=== PATIENT | female | born 1960 | race Caucasian/White ===

== ENCOUNTER 2025-08-17 13:20 | Outpatient (AMB) | payer OTHER, SELFPAY ==
--- OUTSIDE RECORDS SUMMARY | 2024-06-30 05:30 | XMS_ITS ---
Author Organization [facility] Address [address] [place] [address] Care Team Providers Care Filenet Architect Name Role Phone SUDHIR Samson Primary Care Provider [phone] REASON FOR VISIT 6 [facility] Social History Sex Assigned At : Social History Observation Description Sex Assigned At Female Encounters Encounter Location Date Provider Diagnosis [address] [address] 06/30/2024 SUDHIR Samson Plan Of Treatment No Information Progress Notes * Cristin DURAN IDOB:1959 (64 yo F)Acc No.[id number]:06/30/2024 Patient: Cristin Brambila I Provider: Donald Samson DDS :1960 A ge:63 Y S ex:Female Date:06/30/2024 Address:[address] [place] [address] [address] [facility] Subjective: * Chief Complaints: * 6 mrc Objective: Past Vitals:* 12/30/2023 Sterilx2: hd/fb, IDX2: hd/fb , Pulse:60/min, BP:154/71mm Hg, Pain scale:- * 06/24/2023 Sterilx2: gd/fb, IDX2: gd/fb , Pulse:61/min, BP:101/62mm Hg, Pain scale:- * 12/24/2022 Sterilx2:lt/fb, IDX2:lt/fb, Temp:98.4F, Pulse:57/min, BP:126/79mm Hg, Pain scale:01-10 * Electronic signature of CHINO Samson DDS, [id number] on 08/17/2025 at 02:49 PM EDT Sign off status: Pending Visit Status: Saul Kendall (Patient Rescheduled) * Provider: Donald Samson DDS Date: 0 06/30/2024 Generated for Nancy olmedo/Namrata/eTransmitting on: 1 02:49 PM EDT
--- NOTE | 2025-08-17 13:27 | A.OFFPC_ITS ---
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 Intake Note: New patient visit Allergies No Known Allergies Allergy (Verified 08/17/25 13:28) Tobacco use date assessed: 08/17/25 Fall risk assessment: 1 Fall in past year Last assessed Fall Risk: 08/17/25 Dental Screening Dental Screen Date: 08/17/25 Did you have a dental visit in the last 12 months?: Yes Did you have a dental problem in the last 6 months where you did not have access to dental care?: No Was dental information given to patient?: Patient has dentist HPI IMPORT/EXPORT FREIGHT FORWARDER est care/pain meds HPI Details Patient is a 64-year-old female who presents today to [facility]. She is transferring from [place]. No medical records available. She has a hx of pancreatic insufficiency, s/p Whipple per patient without any documentation of this, GI: She states in 2021 she was told to have a whipple due to some issue with pancreatic duct. States NO cancer. Again, no records despite requesting this, she also did not bring them with her. MSK: Fractured her right tibia about 3 months ago. She did need surgery and bracing. She is starting PT in a couple weeks. She sees Dr. Capone. -She has a hx of lumbar DDD. She states she has a hx lumbar spine surgery. She did not feel like this was effective for her back pain. She states that since the surgery she developed severe peripheral neuropathy and bilateral drop foot. -After surgery she had a left ankle inju ry and ?recommended left foot amputa tion. -She states because the pain is so bad s he then went and got a spinal stimulator around 2022. She states it is somewhat helpful. She has been on fci tramadol and this has been helpful for her. In the past gabapentin was not effective. Neuro: Patient has noticed that she is very forgetful for the last couple years. She has a hard time word finding. She is tangential in the office. Her significant other who is here today with her agrees that these changes have been noticeable over the last couple years. She had an MRI in [place] and was told that she has some atrophy of the brain but did not have any workup of this. She was supposed to see Neurology but the wait list was over a year. She did have a sleep study which was negative for sleep apnea. She wants me to test her for thickened blood not being able to get to the brain. Denies any headaches or dizziness. No neck pain. Psych: She was told that she has a history of anxiety and depression but is not really sure if this is accurate. She does struggle with insomnia and sleeps about 2-4 hours at night. Remembers trying 3 different drugs while in the [facility] but does not remember their names. Significant other states that one was called trazodone. 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 1. Little interest or pleasure in doing things: several days 2. Feeling down, depressed, or hopeless: not at all 3. Trouble falling or staying asleep, or sleeping too much: nearly every day 4. Feeling tired or having little energy: nearly every day 5. Poor appetite or overeating: not at all 6. Feeling bad about yourself - or that you are a failure or have let yourself or your family down: not at all 7. Trouble concentrating on things, such as reading the newspaper or watching television: not at all 8. Moving or speaking so slowly that other people could have noticed. Or the opposite - being so fidgety or restless that you have been moving around a lot more than usual: nearly every day 9. Thoughts that you would be better off or of hurting yourself in some way: not at all Total score: 10 Depression Screening Interpretation: Positive Depression Screening Follow-up: Existing condition and Follow-up Visit Requested Depression Screening Done: Yes 63117 - PHQ-9 Billing: Yes Source: Developed by Drs. Davin Clark, Lima Owens, Willy Sanchez and colleagues, with an educational bari from [employer]. Thrive Questionnaire I am a: Patient What is your living situation today?: I have a steady place to live Within the past 12 months, did the food you bought not last and you didn't have the money to get more?: Sometimes True Within the past 12 months, did you worry whether your food would run out before you got money to buy more?: Never true Do you have trouble paying for medicines?: I choose not to answer this question Do you have trouble getting transportation to medical appointments?: No Do you have trouble paying your heating and electricity bill?: No Do you have trouble taking care of your child, family member or friend?: No Do you have trouble with day-to-day activities such as bathing, preparing meals, shopping, managing finances, etc.?: Yes Are you currently unemployed and looking for a job?: No Are you interested in more education?: No Please select the resources that you would like help with: Daily support Currently or been in a relationship where the following occur: I choose not to answer THRIVE Score: 1 AUDIT C Alcohol Use Questionnaire (AUDIT-C) 1. How often do you have a drink containing alcohol?: Never Total Score: 0 Score Reviewed/Action Taken: Yes DALJIT-7 AMB Questionnaire DALJIT-7 Feeling nervous, anxious, or on edge: 1 = Several days Not being able to stop or control worryin = Not at all Worrying too much about different things: 0 = Not at all Trouble relaxin = Several days Being so restless that it is hard to sit still: 0 = Not at all Becoming easily annoyed or irritable: 0 = Not at all Feeling afraid as if something awful might happen: 0 = Not at all Total DALJIT-7 score (0-4 normal; 5-9 mild; 10-14 moderate; 15-21 severe): 2 Source: Developed by Drs. Davin Clark, Willy Koenigoenke and colleagues, with an educational bari from [employer]. DALJIT-7 Assessment Billing DALJIT-7 Assessment Tool: DALJIT-7 Assessment 21292 Physical exam (Primary Care) Depression Screening Interpretation: Positive Depression Screening Follow-up: Existing condition and Follow-up Visit Requested Currently or been in a relationship where the following occur: I choose not to answer Const Orientation/consciousness: patient oriented x3 HENMT Ears: hearing grossly normal bilaterally Neck Thyroid: Thyroid normal Lymphatic: no lymphadenopathy noted Resp Auscultation: clear to auscultation bilaterally Cardio Rate: regular rate Rhythm: regular rhythm Heart sounds: S1 normal heart sound present and S2 normal heart sound present GI Inspection: Yes normal to inspection Palpation (GI): Soft to palpation and Other GI palpation findings present (nontender, no cva tenderness) Auscultation: normoactive bowel sounds Rectal Exam - Female: deferred Skin General skin exam: no rashes or lesions noted Neuro Other: Ambulates with a cane and leg braces. Absent sensation to monofilament. DP pulses 2+ bilaterally. Good capillary refill. Drop foot noted bilaterally. She has a bit tangential during today's visit. General: patient oriented x3 and CN's II-XI intact bilaterally Coding Level of Care Code New Pt Level 5 (18576) Complex EM visit Add On G2211 Diagnoses Forgetfulness R68.89 Insomnia G47.00 Chronic low back pain M54.50; G89.29 Peripheral neuropathy G62.9 Pancreatic insufficiency K86.89 Major depression, recurrent, chronic F33.9 Additional Codes PHQ-9 - 35662 - PHQ-9 Billing: Yes ([id number]) DALJIT-7 Assessment Billing - DALJIT-7 Assessment Tool: DALJIT-7 Assessment 44049 ([id number]) Assessment & Plan Assessment & Plan (1) Forgetfulness: Code(s): R68.89 - Other general symptoms and signs Category: Medical Plan: I spent approximately 90 minutes in bgvu-ac-xlaf time today with this patient trying to get her medical history, discussing a list of her concerns, coming up with a plan for her and reviewing this plan numerous times. MRI ordered Labs ordered Referral to Neurology (2) Insomnia: Code(s): G47.00 - Insomnia, unspecified Category: Medical Plan: We will try hydroxyzine. Discussed risks and benefits and adverse effects of this medication. Reports having a sleep study in the past. Again, requested records (3) Chronic low back pain: Code(s): M54.50 - Low back pain, unspecified; G89.29 - Other chronic pain Category: Medical Plan: We will restart the tramadol. She has recently been prescribed this by Orthopedic surgery for her right tibia fracture Discussed controlled substance contract. She does have braces for her drop foot. Handicap placard documentation also done at the time of today's visit. Offered referral to pain management and discuss possibility of imaging but wants to wait on this until her leg is healed. (4) Peripheral neuropathy: Code(s): G62.9 - Polyneuropathy, unspecified Category: Medical Plan: She is wearing braces. Checks her feet regularly. Stable. As above. (5) Pancreatic insufficiency: Code(s): K86.89 - Other specified diseases of pancreas Category: Medical Plan: creon ordered referral to gi (6) Major depression, recurrent, chronic: Code(s): F33.9 - Major depressive disorder, recurrent, unspecified Category: Medical Plan: discussed possible follow up with wants to wait Plan Mammogram ordered Referral to GI Referral to neurology Labs Short term follow up Orders: Orders Comprehensive Sonoita. Panel Fast Today G47.00 - Insomnia, unspecified, G62.9 - Polyneuropathy, unspecified, G89.29 - Other chronic pain, M54.50 - Low back pain, unspecified, R68.89 - Other general symptoms and signs Complete Blood Count Auto Diff Today G47.00 - Insomnia, unspecified, G62.9 - Polyneuropathy, unspecified, G89.29 - Other chronic pain, M54.50 - Low back pain, unspecified, R68.89 - Other general symptoms and signs TSH reflex Free T4 Today G47.00 - Insomnia, unspecified, G62.9 - Polyneuropathy, unspecified, G89.29 - Other chronic pain, M54.50 - Low back pain, unspecified, R68.89 - Other general symptoms and signs UA CC w/rflx Micro + Cult Today G47.00 - Insomnia, unspecified, G62.9 - Polyneuropathy, unspecified, G89.29 - Other chronic pain, M54.50 - Low back pain, unspecified, R30.0 - Dysuria, R68.89 - Other general symptoms and signs Vitamin B12 and Folate Today G47.00 - Insomnia, unspecified, G62.9 - Polyneuropathy, unspecified, G89.29 - Other chronic pain, M54.50 - Low back pain, unspecified, R68.89 - Other general symptoms and signs MR head/brain wo con Today G47.00 - Insomnia, unspecified, G62.9 - Polyneuropathy, unspecified, G89.29 - Other chronic pain, M54.50 - Low back pain, unspecified, R68.89 - Other general symptoms and signs MM screening mammo BI Today Z12.31 - Encounter for screening mammogram for malignant neoplasm of breast Microalbumin, Random (w Creat) Today G47.00 - Insomnia, unspecified, G62.9 - Polyneuropathy, unspecified, G89.29 - Other chronic pain, M54.50 - Low back pain, unspecified, R68.89 - Other general symptoms and signs Lyme IgG/IgM w/reflex to WB Today G47.00 - Insomnia, unspecified, G62.9 - Polyneuropathy, unspecified, G89.29 - Other chronic pain, M54.50 - Low back pain, unspecified, R68.89 - Other general symptoms and signs Lipid Panel Today G47.00 - Insomnia, unspecified, G62.9 - Polyneuropathy, unspecified, G89.29 - Other chronic pain, M54.50 - Low back pain, unspecified, R68.89 - Other general symptoms and signs Magnesium Today G47.00 - Insomnia, unspecified, G62.9 - Polyneuropathy, unspecified, G89.29 - Other chronic pain, M54.50 - Low back pain, unspecified, R68.89 - Other general symptoms and signs Erythrocyte Sedimentation Rate Today G47.00 - Insomnia, unspecified, G62.9 - Polyneuropathy, unspecified, G89.29 - Other chronic pain, M54.50 - Low back pain, unspecified, R68.89 - Other general symptoms and signs IRON PROFILE Today G47.00 - Insomnia, unspecified, G62.9 - Polyneuropathy, unspecified, G89.29 - Other chronic pain, M54.50 - Low back pain, unspecified, R68.89 - Other general symptoms and signs Ferritin Today G47.00 - Insomnia, unspecified, G62.9 - Polyneuropathy, unspecified, G89.29 - Other chronic pain, M54.50 - Low back pain, unspecified, R68.89 - Other general symptoms and signs Syphilis Screen Today G47.00 - Insomnia, unspecified, G62.9 - Polyneuropathy, unspecified, G89.29 - Other chronic pain, M54.50 - Low back pain, unspecified, R68.89 - Other general symptoms and signs, Z20.2 - Contact with and (suspected) exposure to infections with a predominantly sexual mode of transmission Referrals Neurology Referral R68.89 - Other general symptoms and signs Gastroenterology Referral K86.89 - Other specified diseases of pancreas Medications: New tramadol 50 mg PO BID PRN 60 tabs 5RF pain 30 days tramadol 50 mg PO BID 30 days PRN 60 tabs 5RF pain hydroxyzine HCl 25 mg PO BEDTIME 90 tabs 0RF qqqfuo-relbioec-vfddhhd 36,000-114,000- 180,000 unit (Creon) administer with meals 1 cap PO DAILY 90 caps 3RF
[2025-08-17 13:34] VITALS: BP 106/64; PULSE 65; RESP 14; TEMP 36.9; O2SAT 97; BMI 24.5
--- OUTSIDE RECORDS SUMMARY | 2025-08-17 14:50 | XMS_ITS | Patient Health Record ---
Author Organization [facility] Address [address] [place] [place] [address] Care Team Providers Care Oracle Database Analyst Name Role Phone IssacSUDHIR price Primary Care Provider Allergies No Known Allergies Reason For Referral No Information Medications Medication SIG (Take, Route, Frequency, Duration) Notes Start Date End Date Status Nortriptyline HCl 25 MG Capsule 1 capsule Orally Once a day Not-Taking/PRN Lexapro 10 MG Tablet 1 tablet Orally Onc e a day Not-Taking/PRN Multi Vitamin Active Ashwagandha 125 MG Capsule as directed Orally Active B Complex Active Vitamin D 25 MCG (1000 UT) Tablet 1 tablet Orally Once a day Active oxyCODONE-Acetaminophen 5-325 MG Tablet 1 tablet as needed Orally every 6 hrs Active SF 5000 Plus 1.1 % Cream as directed Den loyd; Duration: 180 days 12/24/2022 Active Social History Tobacco Use: Social History Observation Description Date Details (start date - stop date) Never Smoker NA - NA Sex Assigned At : Social History Observation Description Sex Assigned At Female Social History Drugs/Alcohol: Social Info Question Answer Notes Alcohol Screen (Audit-C) Did you have a drink containing alcohol in the past year? Yes How often did you have a drink containing alcohol in the past year? 2 to 4 times a month (2 points) Points 2 Interpretation Negative Drugs Have you used drugs other than those for medical reasons in the past 12 months? No Drug and Alcohol Total Score: 2 Caffeine Intake: 3-4 cups per day Dental Social Info Question Answer Notes Dental Visit When was the last ti me you have seen a dentist: In the past year Tobacco Use: Social Info Question Answer Notes Tobacco Use/Smoking Are you a smoker ? nonsmoker Additional Details Category Social Info Options Details Learning Needs any vision impairments yes , reading any hearing impairments yes, yury f in left ear can the pt read yes education grade level high schoo l language Hungarian anything else impacting learning no no other learning needs WNL Drugs/Alcohol: Do you smoke marijuana? De nies Do you drink alcohol Admits Vital Signs Heart Rate 71 /min 08/22/2024 Blood pressure diastolic 81 mm Hg 08/22/2024 Blood pressure systolic 121 mm Hg 08/22/2024 Procedures Procedure Date Ordered Date Performed Result Body Sit e PREVIDENT PLUS 08/22/2024 08/22/2024 Done Encounters Encounter Location Date Provider Diagnosis [address] [address] 08/22/2024 SUDHIR Samson Dental examination Z01.20 Assessments Encounter Date Diagnosis (ICD Code) Assessment Notes Treatment Notes Treatment Clinical Notes Section Notes 08/22/2024 Dental examination (ICD-10 - Z01.20) 08/22/2024 Other Learning About Dental Care material was printed Plan Of Treatment No Information Insurance Providers Payer Name Payer Address Payer Phone Subscriber Number Group Number Insured Name Patient Relationship to Insured Coverage Start Date Coverage End Date [employer] [address] [place] [phone] [id number] LancearturAlesha noyolane Self - patient is the insured 3 [facility] Medicare Claims [facility] [address] [facility]ENTERFifth Generation SystemsFormerly [facility] [place] [phone] [id number] Lancetiffanie Cristin Self - patient is the insured 4 Medical (General) History Medical History History ICD Code chronic pain and foot drop from back harpal nir Surgical History Surgery Date(Month/Year) l3-S1 spine fusion 09/2023 right ankle broken 08/2021 removed plate in ankle 11/2021 screw inserted in left foot 01/2022 ER 09/1993 hernia repair 1997 back surgery, disc repair 05/1998 back surgery, disc repair 06/2012 whipple procedure 03/2023 spinal fusion Hospitalization History Reason Date(Month/Year) see above sleep study 08/2024
== END 2025-08-17 14:40 | disposition home or self-care (01) ==
LOC: HO.HMCFM 13:21
PROVIDERS: PCP Physician Assistant; Visit Provider Physician Assistant
DX: G47.00 Insomnia, unspecified (principal); R68.89 Other general symptoms and signs; M54.50 Low back pain, unspecified; G89.29 Other chronic pain; G62.9 Polyneuropathy, unspecified; K86.89 Other specified diseases of pancreas; F33.9 Major depressive disorder, recurrent, unspecified

== ENCOUNTER → 2025-08-17 13:20 | Outpatient (BNVA) | payer OTHER, SELFPAY | PROVIDERS: PCP Physician Assistant; Visit Provider Physician Assistant | DX: M51.360 Other intervertebral disc degeneration, lumbar region with discogenic back pain only (principal); F41.9 Anxiety disorder, unspecified; G47.00 Insomnia, unspecified; G89.29 Other chronic pain; G62.9 Polyneuropathy, unspecified; F33.9 Major depressive disorder, recurrent, unspecified | CPT/HCPCS: 96127 ==

== ENCOUNTER 2025-08-18 08:41 | Outpatient (REF) | payer OTHER, SELFPAY ==
[2025-08-18 11:28] LABS: Appearance Urine Clear; Glucose Urine UA Negative (Negative); PH 6.0 (5.0-9.0); Specific Gravity - Urine 1.020 (1.005-1.025); UMIC TRIGGER UACC YES
[2025-08-18 11:35] LABS: MANUAL DIFF FLAG NO
[2025-08-18 11:38] LABS: UACC Culture Trigger YES
[2025-08-18 11:47] LABS: Hematocrit 35.4 % (37.0-47.0); Hemoglobin 11.8 g/dl (12.0-16.0); Imm Gran Abs Auto 0.02 X10*3/uL (0.00-0.03); Imm Gran Pct Auto 0.3 % (0.0-0.4); Lymphocytes Absolute Auto 1.5 X10*3/uL (1.2-4.9); Mean Corpuscular HGB Conc 33.3 g/dl (31.0-35.0); Mean Corpuscular Hemoglobin 29.4 pg (27.0-33.0); Mean Corpuscular Volume 88.3 fL (80.0-98.0); NRBC Abs Auto 0.000 X10*3/uL (0.0-0.012); NRBC Pct Auto 0.0 /100WBC (0.0-0.2); Platelet Count 274 X10*3/uL (160-400); Red Blood Count 4.01 X10*6/uL (4.20-5.50); White Blood Count 6.2 X10*3/uL (4.8-10.8)
[2025-08-18 12:13] LABS: Alanine Aminotransferase 23 U/L (0-31); Albumin Level 4.1 g/dL (3.5-5.0); Alkaline Phosphatase 201 U/L (39-117); Anion Gap 12 (12-20); Aspartate Amino Transferase 27 U/L (5-31); Blood Urea Nitrogen 16 mg/dL (9-16); Calcium 9.2 mg/dL (8.4-10.2); Carbon Dioxide 31 mmol/L (22-29); Chloride 101 mmol/L (96-108); Cholesterol 165 mg/dL (<200); Estimated Glomerular Filt Rate > 60; HDL Cholesterol 65 mg/dL (>40); Iron 58 mcg/dL (30-160); Magnesium 2.3 mg/dL (1.6-2.6); Percent Iron Saturation 21 % (15-50); Potassium 3.9 mmol/L (3.3-5.1); Sodium 140 mmol/L (135-145); Total Iron Binding Capacity 273 mcg/dL (228-428); Total Protein 6.6 g/dL (6.5-8.0); Triglycerides 69 mg/dL (<150); Unsaturated Iron Binding 215 ug/dL
[2025-08-18 12:23] LABS: Microalbum/Creatinine Ratio Ur 7.3 ug/mg cr (<30)
[2025-08-18 12:37] LABS: Ferritin 45 ng/mL (10-250)
[2025-08-18 12:48] LABS: Syphilis Screen Nonreactive (Nonreactive)
[2025-08-18 12:59] LABS: Folate 13.6 ng/mL (> or = 4.0); Vitamin B12 1033 pg/mL (200-900)
[2025-08-22 13:08] LABS: Lyme Abs Screen <0.90 index
== END 2025-08-18 08:42 | disposition home or self-care (01) ==
LOC: HO.WFDLDS 08:41
PROVIDERS: PCP Physician Assistant; Visit Provider Physician Assistant
DX: Z01.84 Encounter for antibody response examination (principal); Z13.6 Encounter for screening for cardiovascular disorders; M54.50 Low back pain, unspecified; R68.89 Other general symptoms and signs; G47.00 Insomnia, unspecified; G89.29 Other chronic pain; G62.9 Polyneuropathy, unspecified; I10 Essential (primary) hypertension; Z20.2 Contact with and (suspected) exposure to infections with a predominantly sexual mode of transmission
CPT/HCPCS: 36415; 80053; 80061; 81001; 82043; 82570; 82607; 82728; 82746; 83540; 83735; 84443; 85025; 85652; 86617; 86618; 86780; 87086; 90471; 90656

== ENCOUNTER 2025-08-18 08:41 | Outpatient (AMB) | payer OTHER, SELFPAY ==
--- OUTSIDE RECORDS SUMMARY | 2024-06-30 05:30 | XMS_ITS ---
Author Organization [facility] Address [address] [place] [address] Care Team Providers Care Environmental Sciences Professor Name Role Phone SUDHIR Samson Primary Care Provider REASON FOR VISIT 6 [facility] Social History Sex Assigned At : Social History Observation Description Sex Assigned At Female Encounters Encounter Location Date Provider Diagnosis [address] [address] 06/30/2024 SUDHIR Samson Plan Of Treatment No Information Progress Notes * Cristin DURAN IDOB:1959 (64 yo F)Acc No.[id number]:06/30/2024 Patient: Cristin Brambila I Provider: Donald Samson DDS :1960 A ge:63 Y S ex:Female Date:06/30/2024 Address:[address] [place] [address] [address] [facility] Subjective: * Chief Complaints: * 6 mrc Objective: Past Vitals:* 12/30/2023 Sterilx2: hd/fb, IDX2: hd/fb , Pulse:60/min, BP:154/71mm Hg, Pain scale:- * 06/24/2023 Sterilx2: gd/fb, IDX2: gd/fb , Pulse:61/min, BP:101/62mm Hg, Pain scale:- * 12/24/2022 Sterilx2:lt/fb, IDX2:lt/fb, Temp:98.4F, Pulse:57/min, BP:126/79mm Hg, Pain scale:01-10 * Electronic signature of CHINO Samson DDS, [id number] on 08/18/2025 at 09:03 AM EDT Sign off status: Pending Visit Status: Saul Kendall (Patient Rescheduled) * Provider: Donald Samson DDS Date: 0 06/30/2024 Generated for Nancy olmedo/Namrata/eTransmitting on: 1 09:03 AM EDT
--- OUTSIDE RECORDS SUMMARY | 2025-08-18 09:04 | XMS_ITS | Patient Health Record ---
Author Organization [facility] Address [address] [place] [address] Care Team Providers Care General Ledger Bookkeeper Name Role Phone IssacSUDHIR price Primary Care Provider [phone] Allergies No Known Allergies Reason For Referral [...] education grade level high schoo l language Italian anything else impacting learning no no other [...] Done Encounters Encounter Location Date Provider Diagnosis [address] [address] 08/22/2024 SUDHIR Samson Dental examination Z01.20 Assessments [...] End Date [employer] [address] [place] [phone] [id number] LancearturAlesha noyolane Self - patient is the insured 3 [facility] Medicare Claims [facility] [address] [facility]ERNanof[facility] Instruments[place] [phone] [id number] Lancetiffanie Cristin Self - patient is the [...]
--- NOTE | 2025-08-18 09:22 | AM.OFFVISNUR ---
Intake Visit Reasons: flu shot Allergies No Known Allergies Allergy (Verified 08/17/25 13:28) Office Procedures Flu Questionnaire Does the patient have a severe egg allergy?: No Does the patient have severe life threatening allergies?: No Does the patient have a fever or illness today?: No Has the patient ever had Guillain-[place] Syndrome?: No Has the patient ever had any past reaction to a flu shot?: No Immunizations Fluarix [id number] (PF) 45 mcg (15 mcg x 3)/0.5 mL IM syringe Performing Provider: Leena Arias PA-C Performing Location: [facility] Administered by: Bcuk Zamora RN on 08/18/25 09:22 Dose Route Admin Location Dispensed Lot Number Expiration Date [facility] Payable Processor 0.5 mL IM Left Deltoid 0.5 mL [id number] 05/15/26 [id number] [employer] VIS Given Date VIS Provided VIS Publication Date 08/18/25 Single Vaccine 24 Eligibility Eligibility Date Funding Source Not [facility] Eligible 08/18/25 Private Assessment & Plan Assessment & Plan Orders: Orders Influenza [id number] Immunization Today Z23 - Encounter for immunization Coding
== END 2025-08-18 10:17 | disposition home or self-care (01) ==
LOC: HO.HMCFM 08:42
PROVIDERS: PCP Physician Assistant; Visit Provider Physician Assistant
DX: Z23 Encounter for immunization (principal)

== ENCOUNTER 2025-09-25 18:16 | Outpatient (REF) | payer OTHER, SELFPAY ==
--- NOTE | ~2025-09-25 | MR_ITS ---
EXAMINATION: MR BRAIN WITHOUT CONTRAST CLINICAL INFORMATION: R 68.89. COMPARISON: None available. TECHNIQUE: MRI of the brain was obtained using routine sequences without contrast. FINDINGS: Paramagnetic field distortion secondary to dental work. No restricted diffusion. No acute intracranial hemorrhage, mass effect, midline shift, hydrocephalus or herniation. Ordonez-white matter differentiation is normal. Prominence of the extra-axial CSF spaces and cerebral sulci involving the right and to a lesser extent left temporal lobes. Dilated right greater than left temporal horns of the lateral ventricles. Bilateral multifocal patchy and punctate subcortical and deep white matter hyperintense T2 FLAIR signal foci involving centrum semiovale and dumont radiata. Flow-void signal within the main cerebral vessels is normal. Posterior cranial fossa contents demonstrated no signal abnormality or mass effect. Sellar/suprasellar region is normal. Craniocervical junction is intact with normal position of the cerebellar tonsils. MR/MR head/brain wo con IMPRESSION: Bitemporal lobe atrophy, right greater than left. White matter T2 FLAIR signal. Differential diagnostic considerations include small vessel occlusive disease versus demyelinating process. No acute brain abnormality. Electronically signed by: Kodi Ramos MD 09/26/2025 06:46 AM EST
--- OUTSIDE RECORDS SUMMARY | 2025-09-25 18:22 | XMS_ITS | Data Portability ---
Author Organization [place] - [employer], [facility] Office Address [address] [place] [address] Assessment No assessment recorded. Plan of Treatment Reminders Order Date Submit Date Provider Last Modified By Organization Details Last Modified Time Details Appointments None recorde d. Lab drug screen, urine 019 10/18/20 19 [email or web address] [facility] [place], [address] [place] [address], [phone], 9 11:36:37 drug screen, urine 019 12/17/19 19 [facility] [place], [address] [place] [address], [phone], 9 09:51:31 Referral None recorde d. Procedures None recorde d. Surgeries None recorde d. Imaging None recorde d. Medication Orders None recorde d. Patient TargetsNo targets recorded. Patient InstructionsNo instructions recorded. Reason for Referral None Reported. Medical Equipment None Reported. Vitals None Recorded Social History None recorded. Functional Status None recorded. Mental Status None recorded. Family History Nothing Reported. Medical History No medical history recorded. Gynecological HistoryNo gynecological history recorded. Obstetrics History GPAL:G 0 P 0 0 0 0 Past Encounters Encounter ID Performer Location Encounter Start Date Encounter Closed Date Diagnosis/Indication Diagnosis SNOMED-CT Code Diagnosis ICD10 Code Diagnosis IMO Codes Diagnosis Note [id number] Magdalena Serna DO [facility] [address] [place] [address] 12/17/2018 09:28:23 12/17/2018 10:02:14 Screening for disorder 345475947 Z13.9 [id number] Ray Jeronimo DO [facility] [address] [place] [address] 10/18/2019 11:14:18 10/18/2019 11:39:59 Screening for disorder 331914458 Z13.9 Health Concerns Section Related Observation LastModified by Organization Detai ls LastModified Time None Recorded Concern Status LastModified by Organization Details LastModified Time None Recorded Advance Directives Directive None Recorded Payers Insurance Date Sequence Insurance Name Policy Number Policy Beatty Covered Member ID Beatty Member ID Guarantor Name 12/17/2018 1 *SELF PAY* Co tara Lilly 12/23/2018 [employer] ([employer]) Cristin Lilly [id number] Cristin Lilly OBGyn Episode No OBEpisode recorded.
== END 2025-09-25 18:17 | disposition home or self-care (01) ==
LOC: HO.MRI 18:16
PROVIDERS: Visit Provider Physician Assistant
DX: R68.89 Other general symptoms and signs (principal); G47.00 Insomnia, unspecified; M54.50 Low back pain, unspecified; G89.29 Other chronic pain; G62.9 Polyneuropathy, unspecified
CPT/HCPCS: 70551

== ENCOUNTER → 2025-09-25 18:24 | Outpatient (BNV) | payer OTHER, SELFPAY | PROVIDERS: Visit Provider Radiology Diagnostic Radiology | DX: G31.09 Other frontotemporal neurocognitive disorder (principal); R90.82 White matter disease, unspecified | CPT/HCPCS: 70551 ==

== ENCOUNTER 2025-10-09 08:18 | Outpatient (REF) | payer OTHER, SELFPAY ==
[2025-10-09 13:03] LABS: MANUAL DIFF FLAG NO
[2025-10-09 13:14] LABS: Hematocrit 39.7 % (37.0-47.0); Hemoglobin 12.6 g/dl (12.0-16.0); Imm Gran Abs Auto 0.01 X10*3/uL (0.00-0.03); Imm Gran Pct Auto 0.2 % (0.0-0.4); Lymphocytes Absolute Auto 1.9 X10*3/uL (1.2-4.9); Mean Corpuscular HGB Conc 31.7 g/dl (31.0-35.0); Mean Corpuscular Hemoglobin 28.8 pg (27.0-33.0); Mean Corpuscular Volume 90.8 fL (80.0-98.0); NRBC Abs Auto 0.000 X10*3/uL (0.0-0.012); NRBC Pct Auto 0.0 /100WBC (0.0-0.2); Platelet Count 354 X10*3/uL (160-400); Red Blood Count 4.37 X10*6/uL (4.20-5.50); White Blood Count 4.7 X10*3/uL (4.8-10.8)
[2025-10-09 14:04] LABS: Erythrocyte Sedimentation Rate 48 MM/HR (0-20)
[2025-10-09 14:56] LABS: Folate 17.5 ng/mL (> or = 4.0); Vitamin B12 712 pg/mL (200-900)
[2025-10-09 15:44] LABS: Alanine Aminotransferase 26 U/L (0-31); Albumin Level 4.1 g/dL (3.5-5.0); Alkaline Phosphatase 225 U/L (39-117); Anion Gap 13 (12-20); Aspartate Amino Transferase 34 U/L (5-31); Blood Urea Nitrogen 16 mg/dL (9-16); Calcium 9.7 mg/dL (8.4-10.2); Carbon Dioxide 30 mmol/L (22-29); Chloride 104 mmol/L (96-108); Estimated Glomerular Filt Rate > 60; Potassium 4.4 mmol/L (3.3-5.1); Sodium 143 mmol/L (135-145); Total Protein 6.9 g/dL (6.5-8.0)
== END 2025-10-09 08:19 | disposition home or self-care (01) ==
LOC: HO.HKASLDS 08:18
PROVIDERS: PCP Physician Assistant; Visit Provider Psychiatry & Neurology Neurology
DX: R90.89 Other abnormal findings on diagnostic imaging of central nervous system (principal); F09 Unspecified mental disorder due to known physiological condition; F33.9 Major depressive disorder, recurrent, unspecified; M54.50 Low back pain, unspecified; G89.29 Other chronic pain; G47.00 Insomnia, unspecified; Z13.6 Encounter for screening for cardiovascular disorders
CPT/HCPCS: 36415; 80053; 82607; 82746; 83090; 84443; 85025; 85652

== ENCOUNTER 2025-10-09 08:18 | Outpatient (AMB) | payer OTHER, SELFPAY ==
--- OUTSIDE RECORDS SUMMARY | 2024-06-30 04:30 | XMS_ITS ---
Author Organization [facility] Address [address] [place] [address] Care Team Providers Care Assistant Professor Of Art Name Role Phone SUDHIR Samson Primary Care Provider REASON FOR VISIT 6 [facility] Social History Sex Assigned At : Social History Observation Description Sex Assigned At Female Encounters Encounter Location Date Provider Diagnosis [address] [address] 06/30/2024 SUDHIR Samson Plan Of Treatment No Information Progress Notes * Cristin DURAN IDOB:1959 (64 yo F)Acc No.[id number]:06/30/2024 Patient: Cristin Brambila I Provider: Donald Samson DDS :1960 A ge:63 Y S ex:Female Date:06/30/2024 Address:[address] [place] [address] [address] [facility] Subjective: * Chief Complaints: * 6 mrc Objective: Past Vitals:* 12/30/2023 Sterilx2: hd/fb, IDX2: hd/fb , Pulse:60/min, BP:154/71mm Hg, Pain scale:- * 06/24/2023 Sterilx2: gd/fb, IDX2: gd/fb , Pulse:61/min, BP:101/62mm Hg, Pain scale:- * 12/24/2022 Sterilx2:lt/fb, IDX2:lt/fb, Temp:98.4F, Pulse:57/min, BP:126/79mm Hg, Pain scale:01-10 * Electronic signature of CHINO Samson DDS, [id number] on 10/09/2025 at 08:26 AM EST Sign off status: Pending Visit Status: Saul Kendall (Patient Rescheduled) * Provider: Donald Samson DDS Date: 0 06/30/2024 Generated for Nancy olmedo/Namrata/eTransmitting on: 1 12/09/2024 08:26 AM EST
--- NOTE | 2025-10-09 08:20 | MHC.OFFVIS ---
Vital Signs 10/09/25 08:21 Height 5 ft 3 in Weight 136 lb 2 oz BMI 24.1 BP 128/72 Blood Pressure Location Rt brachial Position Sitting Pulse 71 Pulse Source Pulse Oximeter Pulse Oximetry (%) 99 Oxygen Delivery Method Room Air Intake Visit Reasons: I-REGULATORY AFFAIRS COORDINATOR: demyelination Intake Note: New pt presents for peripheral neuropathy, forgetfulness and Abnormal MRI Dining Services Manager Required: No Accompanied by: Significant Other Allergies No Known Allergies Allergy (Verified 10/09/25 08:20) Medication List - Last Reconciled 10/09/25 by America Payton MD [id number]-mimtfyw (pork) 36,000-114,000- 180,000 unit (Creon) 1 cap PO DAILY tramadol 50 mg PO BID PRN 30 days trazodone 100 mg PO BEDTIME HPI Comments Details: 64y/o female comes for evaluation of cognitive issues , abnormal MRI [place] moved to [place] from [place] 5 mths ago. when she was fixing her house - she fell and fractured her right Tibia . Even in [place]- For past 2 years had memory issues, she says she has no emotions- says nothing makes her feel good, not motivated, difficulty sleeping.It was mild and now has worsened.Now she has to write notes everyday . she forgets the paces she has been , her does not think it is a major memory issues. sometimes has difficulty comprehending. she was trialed on medications for depression and did not work. Her mood worsenend since her back surgery she also reports excessive daytime fatigue, has difficulty falling asleep .she has multiple naps as per her .she had a sleep study -in lab study sleep apnea was ruled out as per patient. No known head injury No fh/o dementia She used to consume excess alcohol intermittently . she stopped drinking 3 years ago. she has passed out from alcohol consumption. she had a brother that from ALcoholism , 2 sisters in their 60s - cancer, 1 brother was killed when she was 6 years old. Her father was alcoholic. 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 she has azucena dropped foot- since her back surgery January 2020.in [place]. she had prior surgeries when she was in [place] she had a fall that led to fracture in her left foot which didnt heal and she has chronic pain - on medications and spinal cord stimulator. 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 3.) Vision needs: Yes (reading glasses) Physical Exam Vital Signs: Last Vital Signs Pulse 71 10/09/25 08:21 BP 128/72 10/09/25 08:21 Pulse Ox 99 10/09/25 08:21 Oxygen Delivery Method Room Air 10/09/25 08:21 BMI result Body Mass Index 24.1 Const General: cooperative, healthy appearing and comfortable Nutritional Appearance: average body habitus Orientation/consciousness: patient oriented x3 Eyes Pupils: Equal, round and reactive pupils present Neuro Other: weakness of dorsiflexion azucena feet- AFO word finding difficulty gait - high steppage gait General: patient oriented x3, tone normal, moves all extremities and no focal motor deficits Cranial nerves: Yes Facial sensation intact/muscles of mastication intact, Yes Equal, round and reactive pupils present, Yes Bilaterally intact EOM present, Yes Nystagmus not present, Yes Normal facial strength present, Yes Midline tongue present, Yes Symmetric palate elevation present and Yes Ability to bilaterally elevate shoulders present Cognition (Neuro): normal cognition Gait exam (Neuro): Steppage gait present Motor exam (neuro): Normal motor muscle tone present throughout Deep tendon reflexes (DTR's): Right triceps reflex intensity grade: 2+, Left triceps reflex intensity grade: 2+, Rt Biceps (C5, C6): 2+, Left biceps reflex intensity grade: 2+, Right brachioradialis reflex intensity grade: 2+, Left brachioradialis reflex intensity grade: 2+, Right patellar reflex intensity grade: 1+ and Left patellar reflex intensity grade: 1+ Coordination: pzyoig-ll-mqqy test normal Orientation What is the (year) (season) (date) (day) (month)?: year, season, date, day and month Where are we (state) (county) (town or city) (hospital) (floor)?: state, county, town or city, hospital/clinic and floor Registration Name of 3 unrelated objects clearly and slowly, then ask patient to repeat all 3 of them. (1st repeat determines score. Make sure they can repeat all three): object 1, object 2 and object 3 Attention & Calculation (CHOOSE ONE) Spell WORLD backwards (DLROW): 5 letters Recall Ask patient to repeat the 3 items from question #3.: object 1 Language Show patient a wristwatch & ask what it is. Repeat for pencil.: watch and pencil Ask the patient to repeat the phrase 'No ifs, ands, or buts' after you.: correct Ask the patient to 'take a piece of paper with their right hand' 'fold paper in half' 'place paper on floor': take paper in right hand, fold paper in half and place paper on floor Print the sentence 'CLOSE YOUR EYES' on a piece. If patient actually closes eyes then score.: followed written direction Give patient a blank piece of paper & ask to write a sentence. Score if it contains a noun & verb.: sentence contains subject and verb Ask patient to copy figure of intersecting pentagons exactly. Score if all 10 angles & 2 intersects are included.: all 10 angles present & 2 are intersected Score Score: 28 Assessment & Plan Assessment & Plan (1) Cognitive disorder: Comment: ? mood related , mild cognitive impairment Code(s): F09 - Unspecified mental disorder due to known physiological condition Category: Medical (2) Major depression, recurrent, chronic: Code(s): F33.9 - Major depressive disorder, recurrent, unspecified Category: Medical (3) Chronic low back pain: Code(s): M54.50 - Low back pain, unspecified; G89.29 - Other chronic pain Category: Medical (4) Abnormal brain MRI: Code(s): R90.89 - Other abnormal findings on diagnostic imaging of central nervous system Category: Medical (5) Insomnia: Comment: PSG - normal Code(s): G47.00 - Insomnia, unspecified Category: Medical Plan Reviewed MRI brain - will consider PET AMyloid Neuropsych testing Psyhciatry and psychology ref Pain management referral D/C trazadone 'trial mirtazepine 15 mg qhs Reviewed MRI in detail Labs - B12 TSH ESR Homocysteine CBC CMP Orders: Orders Vitamin B12 and Folate Today R68. - Other general symptoms and signs Complete Blood Count Auto Diff Today R68. - Other general symptoms and signs TSH reflex Free T4 Today R68. - Other general symptoms and signs Homocysteine Today R68.89 - Other general symptoms and signs Erythrocyte Sedimentation Rate Today R68.89 - Other general symptoms and signs Comprehensive Met. Panel Today R68. - Other general symptoms and signs Referrals Psychology Referral F33.9 - Major depressive disorder, recurrent, unspecified Neuropsychiatry Referral R6. - Other general symptoms and signs, R90.89 - Other abnormal findings on diagnostic imaging of central nervous system Pain Management Referral G89.29 - Other chronic pain, M54.9 - Dorsalgia, unspecified Medications: New mirtazapine 15 mg PO BEDTIME 30 tabs 6RF Coding Level of Care Code Complex visit Add On G2211 Diagnoses Cognitive disorder F09 Major depression, recurrent, chronic F33.9 Chronic low back pain M54.50; G89.29 Abnormal brain MRI R90.89 Insomnia G47.00
[2025-10-09 08:21] VITALS: BP 128/72; PULSE 71; O2SAT 99; BMI 24.1
--- OUTSIDE RECORDS SUMMARY | 2025-10-09 08:27 | XMS_ITS | Data Portability ---
Author Organization [place] - [employer], [facility] Office Address [address] [place] [address] Assessment No assessment recorded. Plan of Treatment Reminders Order Date Submit Date Provider Last Modified By Organization Details Last Modified Time Details Appointments None recorde d. Lab drug screen, urine 019 10/18/20 19 [email or web address] 6 [facility], [place], [address] [place] [address], [phone], 9 11:36:37 drug screen, urine 019 12/17/19 19 [email or web address] [facility] [place], [address] [place] [address], [phone], 9 09:51:31 Referral None recorde d. Procedures [...] ICD10 Code Diagnosis IMO Codes Diagnosis Note [id number] Magdalena Serna DO [facility] [address] [place] [address] 12/17/2018 09:28:23 12/17/2018 10:02:14 Screening for disorder [id number] Z13.9 [id number] Ray Jeronimo DO [facility] [address] [place] [address] 10/18/2019 11:14:18 10/18/2019 11:39:59 Screening for disorder [id number] Z13.9 Health Concerns Section Related Observation LastModified by Organization Detai ls LastModified Time None Recorded Concern Status LastModified by Organization Details LastModified Time None Recorded Advance Directives Directive None Recorded Payers Insurance Date Sequence Insurance Name Policy Number Policy Beatty Covered Member ID Beatty Member ID Guarantor Name 12/17/2018 1 *SELF PAY* Co tara Lilly 12/23/2018 [employer] ([employer]) Cristin Lilly [id number] Cristin Lilly OBGyn Episode No OBEpisode recorded.
== END 2025-10-09 09:26 | disposition home or self-care (01) ==
LOC: HO.HSMS 08:19
PROVIDERS: PCP Physician Assistant; Visit Provider Psychiatry & Neurology Neurology
DX: R41.89 Other symptoms and signs involving cognitive functions and awareness (principal); F33.9 Major depressive disorder, recurrent, unspecified; M54.50 Low back pain, unspecified; G89.29 Other chronic pain; R90.89 Other abnormal findings on diagnostic imaging of central nervous system; G47.00 Insomnia, unspecified
CPT/HCPCS: 99214; G2211

== ENCOUNTER 2025-10-23 08:29 | Outpatient (REF) | payer OTHER, SELFPAY ==
[2025-10-23 11:30] LABS: MANUAL DIFF FLAG NO
[2025-10-23 11:48] LABS: Hematocrit 38.3 % (37.0-47.0); Hemoglobin 12.3 g/dl (12.0-16.0); Imm Gran Abs Auto 0.01 X10*3/uL (0.00-0.03); Imm Gran Pct Auto 0.2 % (0.0-0.4); Lymphocytes Absolute Auto 1.7 X10*3/uL (1.2-4.9); Mean Corpuscular HGB Conc 32.1 g/dl (31.0-35.0); Mean Corpuscular Hemoglobin 28.8 pg (27.0-33.0); Mean Corpuscular Volume 89.7 fL (80.0-98.0); NRBC Abs Auto 0.000 X10*3/uL (0.0-0.012); NRBC Pct Auto 0.0 /100WBC (0.0-0.2); Platelet Count 283 X10*3/uL (160-400); Red Blood Count 4.27 X10*6/uL (4.20-5.50); White Blood Count 4.4 X10*3/uL (4.8-10.8)
[2025-10-23 12:31] LABS: Parathyroid Hormone Intact 56.9 pg/mL (8.7-77.1)
[2025-10-23 12:40] LABS: Alanine Aminotransferase 34 U/L (0-31); Albumin Level 4.0 g/dL (3.5-5.0); Alkaline Phosphatase 243 U/L (39-117); Aspartate Amino Transferase 34 U/L (5-31); Total Protein 6.6 g/dL (6.5-8.0)
== END 2025-10-23 08:30 | disposition home or self-care (01) ==
LOC: HO.WFDLDS 08:29
PROVIDERS: Visit Provider Physician Assistant
DX: R73.01 Impaired fasting glucose (principal); R74.8 Abnormal levels of other serum enzymes; R79.89 Other specified abnormal findings of blood chemistry; Z13.21 Encounter for screening for nutritional disorder
CPT/HCPCS: 36415; 80076; 82306; 83036; 83970; 85025

== ENCOUNTER 2025-10-25 13:52 | Outpatient (AMB) | payer OTHER, SELFPAY ==
--- NOTE | 2025-10-25 14:00 | A.OFFPC_ITS ---
Vital Signs 10/25/25 14:01 Height 5 ft 3 in Weight 140 lb 6 oz BMI 24.9 BP 114/76 Blood Pressure Location Lt brachial Position Sitting Respiration 14 Pulse 64 Pulse Source Pulse Oximeter Temp 97.9 F Temp Source Oral Pulse Oximetry (%) 94 Oxygen Delivery Method Room Air Intake Visit Reasons: review results MRI Intake Note: Discuss brain MRI Lockstitch Front Edge Tape Sewer Required: No Allergies No Known Allergies Allergy (Verified 10/26/25 08:25) Medication List - Last Reconciled 10/25/25 by Leena Arias PA-C zzzxqb-lnfnvfdl-jzvlwem (pork) 36,000-114,000- 180,000 unit (Creon) 1 cap PO DAILY meloxicam 15 mg PO DAILY mirtazapine 15 mg PO BEDTIME tramadol 50 mg PO BID PRN 30 days Tobacco use date assessed: 08/17/25 Fall risk assessment: 1 Fall in past year Last assessed Fall Risk: 10/25/25 Dental Screening Dental Screen Date: 08/17/25 HPI review results MRI HPI Details Patient is a 64-year-old female who presents today for a follow up. She is new here. We still do not have medical records available. She has a hx of pancreatic insufficiency, s/p Whipple per patient without any documentation of this, GI: She states in 2021 she was told to have a whipple due to some issue with pancreatic duct. States NO cancer. Again, no records despite requesting this, she also did not bring them with her. She is on Creon with meals. MSK: Fractured her right tibia this summer. She did need surgery and bracing. She sees Dr. Capone. -She has a hx of lumbar DDD. She states she has a hx lumbar spine surgery. She did not feel like this was effective for her back pain. She states that since the surgery she developed severe peripheral neuropathy and bilateral drop foot. -After surgery she had a left ankle inju ry and ?recommended left foot amputation. -She states because the pain is so bad s he then went and got a spinal stimulator around 2022. She states it is somewhat helpful. She has been on skilled nursing tramadol and this has been helpful for her. In the past gabapentin was not effective. Neuro: She has recently followed with neurology who recommended she also follow with neuropsychiatry. She says that she has not heard about an appointment time. She has struggled seeing a psychiatrist. She does feel that her mood is down. She tells me that she has a history of having no emotions. Patient has noticed that she is very forgetful for the last couple years. She has a hard time word finding. She is tangential in the office. She had an MRI in [place] and was told that she has some atrophy of the brain but did not have any workup of this. She was supposed to see Neurology but the wait list was over a year. She did have a sleep study which was negative for sleep apnea. MR/MR head/brain wo con IMPRESSION: Bitemporal lobe atrophy, right greater than left. White matter T2 FLAIR signal. Differential diagnostic considerations include small vessel occlusive disease versus demyelinating process. No acute brain abnormality Denies any headaches or dizziness. No neck pain. Psych: She was told that she has a history of anxiety and depression but is not really sure if this is accurate. She does struggle with insomnia and sleeps about 2-4 hours at night. Remembers trying 3 different drugs while in the [facility] but does not remember their names. We tried trazodone and hydroxyzine without any effect. She was recently put on mirtazapine by Neurology and she says it is minimally helpful. 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3.) Vision needs: Yes (reading glasses) Questionnaire Thrive Questionnaire Date Thrive assessed: 08/17/25 I am a: Patient What is your living situation today?: I have a steady place to live Within the past 12 months, did the food you bought not last and you didn't have the money to get more?: Sometimes True Within the past 12 months, did you worry whether your food would run out before you got money to buy more?: Never true Do you have trouble paying for medicines?: I choose not to answer this question Do you have trouble getting transportation to medical appointments?: No Do you have trouble paying your heating and electricity bill?: No Do you have trouble taking care of your child, family member or friend?: No Do you have trouble with day-to-day activities such as bathing, preparing meals, shopping, managing finances, etc.?: Yes Are you currently unemployed and looking for a job?: No Are you interested in more education?: No Please select the resources that you would like help with: Daily support Currently or been in a relationship where the following occur: I choose not to answer THRIVE Score: 1 AUDIT C Alcohol Use Questionnaire (AUDIT-C) 1. How often do you have a drink containing alcohol?: Never 3. How often do you have six or more drinks on one occasion?: Never Total Score: 0 Physical exam (Primary Care) Vital Signs: Last Vital Signs Temp 97.9 F 10/25/25 14:01 Pulse 64 10/25/25 14:01 Resp 14 10/25/25 14:01 BP 114/76 10/25/25 14:01 Pulse Ox 94 10/25/25 14:01 Oxygen Delivery Method Room Air 10/25/25 14:01 BMI result Body Mass Index 24.9 Tobacco/Smoking Status: Tobacco use Status Tobacco use date assessed 08/17/25 10/25/25 14:00 Patient Tobacco Use Status Former Tobacco user (quit 10/25/25 14:00 2011) e-Cigarette/Vaping Use Never Used 10/25/25 14:00 Thrive Assessment: Date of Thrive Assessment Date Thrive assessed 08/17/25 10/25/25 14:00 Currently or been in a relationship where the following occur: I choose not to answer Const Orientation/consciousness: patient oriented x3 HENMT Ears: hearing grossly normal bilaterally Neck Thyroid: Thyroid normal Lymphatic: no lymphadenopathy noted Resp Auscultation: clear to auscultation bilaterally Cardio Rate: regular rate Rhythm: regular rhythm Heart sounds: S1 normal heart sound present and S2 normal heart sound present GI Inspection: Yes normal to inspection Palpation (GI): Soft to palpation and Other GI palpation findings present (nontender, no cva tenderness) Auscultation: normoactive bowel sounds Rectal Exam - Female: deferred Skin General skin exam: no rashes or lesions noted Neuro General: patient oriented x3, gait normal and no focal motor deficits Psych Appearance: well kempt Speech and movement: Clear speech present Affect: Blunted affect present Attitude: Guarded attititude/behavior present Insight: Fair insight present (Psych) Judgement: Fair judgement present (Psych) Coding Level of Care Code Est Pt Level 4 (36659) Add On Problem Visit Only Diagnoses Forgetfulness R68.89 Cognitive disorder F09 Insomnia G47.00 Mood disorder F39 Elevated alkaline phosphatase level R74.8 Prediabetes R73.03 Assessment & Plan Assessment & Plan (1) Forgetfulness: Code(s): R68.89 - Other general symptoms and signs Category: Medical Plan: following with neurology (2) Cognitive disorder: Comment: ? mood related , mild cognitive impairment Code(s): F09 - Unspecified mental disorder due to known physiological condition Category: Medical Plan: Has not heard from psych phone number provided today (3) Insomnia: Comment: PSG - normal Code(s): G47.00 - Insomnia, unspecified Category: Medical Plan: increase mirtazapine to 30 mg nightly (4) Mood disorder: Code(s): F39 - Unspecified mood [affective] disorder Category: Medical Plan: discussed the importance of seeing psych flat affect since meeting pt- appears baseline (5) Elevated alkaline phosphatase level: Code(s): R74.8 - Abnormal levels of other serum enzymes Category: Medical Plan: will check lab u/s ordered referral to GI again (6) Prediabetes: Code(s): R73.03 - Prediabetes Category: Medical Plan: will monitor a1c We spent extensive time today discussing diabetes and prediabetes and diet changes. Orders: Orders Alkaline Phosphatase Isoenzyme 10/25/25 R74.8 - Abnormal levels of other serum enzymes US abdomen comp w elastography 10/25/25 R74.8 - Abnormal levels of other serum enzymes, R79.89 - Other specified abnormal findings of blood chemistry Referrals Gastroenterology Referral K86.89 - Other specified diseases of pancreas, R79.89 - Other specified abnormal findings of blood chemistry Medications: New mirtazapine 30 mg PO BEDTIME 90 tabs 1RF Changed From vozygt-tzjvdsrc-apimkrd (pork) 36,000-114,000- 180,000 unit (Creon) administer with meals 1 cap PO DAILY 90 caps 3RF To zakzgr-dfeqwaxc-gitusrk (pork) 36,000-114,000- 180,000 unit (Creon) administer with meals 2 caps PO TID 180 caps 3RF 30 days Discontinued mirtazapine Discontinued Reason: Doctor's Order 15 mg PO BEDTIME 30 tabs 6RF Patient Instructions: [facility]- [phone] increase mirtazapine to 30 mg nightly [facility] Gastro dept- [phone] for your liver and pancreatic insufficiency They will call you to book abdominal ultrasound blood work today
[2025-10-25 14:01] VITALS: BP 114/76; PULSE 64; RESP 14; TEMP 36.6; O2SAT 94; BMI 24.9
== END 2025-10-25 15:00 | disposition home or self-care (01) ==
LOC: HO.HMCFM 13:53
PROVIDERS: PCP Physician Assistant; Visit Provider Physician Assistant
DX: R68.89 Other general symptoms and signs (principal); F09 Unspecified mental disorder due to known physiological condition; G47.00 Insomnia, unspecified; F39 Unspecified mood [affective] disorder; R74.8 Abnormal levels of other serum enzymes; R73.03 Prediabetes

== ENCOUNTER 2025-10-25 13:52 | Outpatient (REF) | payer OTHER, SELFPAY ==
--- OUTSIDE RECORDS SUMMARY | 2025-10-25 23:39 | XMS_ITS | Data Portability ---
Author Organization [place] - [employer], [facility] Office Address [address] [place] [address] Assessment No assessment recorded. Plan of Treatment Reminders Order Date Submit Date Provider Last Modified By Organization Details Last Modified Time Details Appointments None recorde d. Lab drug screen, urine 019 10/18/20 19 [email or web address] 6 [facility], [address] [place] [address], [phone], 9 11:36:37 drug screen, urine 019 12/17/19 19 [facility], [address] [place] [address], [phone], 9 09:51:31 Referral None recorde d. Procedures [...] ICD10 Code Diagnosis IMO Codes Diagnosis Note [id number] Magdalena Serna DO [facility] [address] [place] [address] 12/17/2018 09:28:23 12/17/2018 10:02:14 Screening for disorder [id number] Z13.9 [id number] Ray Jeronimo DO [facility]* [address] [place] [address] 10/18/2019 11:14:18 10/18/2019 11:39:59 Screening for disorder [id number] Z13.9 Health Concerns Section Related Observation LastModified by Organization Detai ls LastModified Time None Recorded Concern Status LastModified by Organization Details LastModified Time None Recorded Advance Directives Directive None Recorded Payers Insurance Date Sequence Insurance Name Policy Number Policy Beatty Covered Member ID Beatty Member ID Guarantor Name 12/17/2018 1 *SELF PAY* Co tara Lilly 12/23/2018 [employer] ([facility]) Cristin Lilly [id number] Cristin Lilly OBGyn Episode No OBEpisode recorded.
[2025-10-28 18:58] LABS: Alk.Phos Iso. Macrohepatic 0 % (<=0); Alk.Phos Isoenzymes Bone 39 % (28-66); Alk.Phos Isoenzymes Intest 0 % (1-24); Alk.Phos Isoenzymes Liver 61 % (25-69); Alk.Phos Isoenzymes Placental 0 % (<=0); Alk.Phos Isoenzymes Total 221 U/L (37-153)
== END 2025-10-25 13:53 | disposition home or self-care (01) ==
LOC: HO.WFDLDS 13:52
PROVIDERS: PCP Physician Assistant; Visit Provider Physician Assistant
DX: R74.8 Abnormal levels of other serum enzymes (principal); R68.89 Other general symptoms and signs; F09 Unspecified mental disorder due to known physiological condition; G47.00 Insomnia, unspecified; F39 Unspecified mood [affective] disorder; R73.03 Prediabetes
CPT/HCPCS: 36415; 84080

== ENCOUNTER 2025-10-26 08:10 | Outpatient (REF) | payer OTHER, SELFPAY ==
--- NOTE | ~2025-10-26 | XR_ITS ---
EXAMINATION: XR THORACIC SPINE CLINICAL INFORMATION: V36.82 . Presence of neurostimulator COMPARISON: None available. TECHNIQUE: AP and lateral views. FINDINGS: The intraspinal canal stimulator electrode leads ending at T7 level and entering right midline dorsal lateral approach T9-10 level. Metallic reservoir overlapping the left upper quadrant abdomen. There is a levoconvex curvature of the upper thoracic spine and a mild dextroconvex curvature lower thoracic spine. No lytic or blastic lesions. Endplate sclerosis and decreased intervertebral disc height and the mid thoracic spine. No acute fracture or gross listhesis. XR/XR thoracic spine 3V IMPRESSION: There are stimulator electrode leads entering in at T9-10 level and ending at T7. Levoconvex scoliosis, upper thoracic spine. EXAMINATION: XR LUMBOSACRAL SPINE CLINICAL INFORMATION: M54.9 - Dorsalgia, unspecified COMPARISON: None available. TECHNIQUE: AP and lateral views. FINDINGS: Endplate sclerosis marginal osteophyte formation and decreased intervertebral disc height and vacuum phenomenon at L2-3. Intervertebral disc spacer placement at L3-4, L4-5 and L5-S1 levels. There is a anterior right lateral approach plates at L4-5. Likely laminectomies L3-4, L4-5 levels. Metallic reservoir in the left posterior lumbar region. S-shaped curvature of the thoracolumbar spine. No acute cortical disruption or gross malalignment. IMPRESSION: Spondylosis, L2-3. Status post surgical changes/arthrodesis from L3-4 to L5-S1. Electronically signed by: Kodi Ramos MD 10/26/2025 10:04 AM DEVEN
--- NOTE | ~2025-10-26 | XR_ITS ---
EXAMINATION: XR THORACIC SPINE CLINICAL INFORMATION: V36.82 . Presence of neurostimulator COMPARISON: None available. TECHNIQUE: AP and lateral views. FINDINGS: The intraspinal canal stimulator electrode leads ending at T7 level and entering right midline dorsal lateral approach T9-10 level. Metallic reservoir overlapping the left upper quadrant abdomen. There is a levoconvex curvature of the upper thoracic spine and a mild dextroconvex curvature lower thoracic spine. No lytic or blastic lesions. Endplate sclerosis and decreased intervertebral disc height and the mid thoracic spine. No acute fracture or gross listhesis. XR/XR lumbar spine 2-3V IMPRESSION: There are stimulator electrode leads entering in at T9-10 level and ending at T7. Levoconvex scoliosis, upper thoracic spine. EXAMINATION: XR LUMBOSACRAL SPINE CLINICAL INFORMATION: M54.9 - Dorsalgia, unspecified COMPARISON: None available. TECHNIQUE: AP and lateral views. FINDINGS: Endplate sclerosis marginal osteophyte formation and decreased intervertebral disc height and vacuum phenomenon at L2-3. Intervertebral disc spacer placement at L3-4, L4-5 and L5-S1 levels. There is a anterior right lateral approach plates at L4-5. Likely laminectomies L3-4, L4-5 levels. Metallic reservoir in the left posterior lumbar region. S-shaped curvature of the thoracolumbar spine. No acute cortical disruption or gross malalignment. IMPRESSION: Spondylosis, L2-3. Status post surgical changes/arthrodesis from L3-4 to L5-S1. Electronically signed by: Kodi Ramos MD 10/26/2025 10:04 AM DEVEN
== END 2025-10-26 08:11 | disposition home or self-care (01) ==
LOC: HO.XRAY 08:10
PROVIDERS: PCP Physician Assistant; Referring Provider Psychiatry & Neurology Neurology; Visit Provider Nurse Practitioner Family
DX: M96.1 Postlaminectomy syndrome, not elsewhere classified (principal); G89.29 Other chronic pain; M54.50 Low back pain, unspecified; G62.9 Polyneuropathy, unspecified; M79.672 Pain in left foot; Z96.82 Presence of neurostimulator
CPT/HCPCS: 72072; 72100

== ENCOUNTER 2025-10-26 08:10 | Outpatient (AMB) | payer OTHER, SELFPAY ==
--- NOTE | 2025-10-26 08:13 | MHC.OFFVIS ---
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 Her symptoms began following a back surgery in January 2020 for a bulging disc, during which she had three discs (L3, L4, and L5) replaced and she underwent lumbar fusion. Post-surgically, she developed peripheral neuropathy in both legs and significant bilateral foot drop, for which she uses ankle braces. Approximately two weeks after her surgery, she tripped on a rug due to the foot drop and sustained a fracture of her left tibia, which was initially managed non-surgically. About a year later, due to worsening pain, an MRI revealed persistent damage, and she underwent a procedure to place a screw, which was later removed. This intervention did not resolve her pain, which has since grown progressively worse. She has a [employer] spinal cord stimulator (SCS), which was placed in 2022 to manage this foot pain, but she reports it provides little relief and is irritating at the battery site which is located in the left upper lumbar regions. She currently takes tramadol for pain, having switched from oxycodone due to concerns about cognitive side effects, and has previously failed a trial of gabapentin. Patient reports since their recent move to [place], she injured her right leg and foot and went to [facility] in [place], where x-rays were taken (reports are not available for review) and she was provided with script of meloxicam. She also reports pending evaluation by Podiatry. Separately, the patient reports a two-year history of memory issues, forgetfulness, and cognitive changes, for which she has been seeing a [facility] Neurologist. A brain MRI revealed bitemporal lobe atrophy, right greater than left, and white matter changes. She has a history of depression, for which multiple medications have been ineffective, and reports chronic daytime fatigue and a feeling of having no emotions but noted to smile occasionally during today's visit. However, she does have flat affect with slow responses and forgetfulness. Pain Description - Onset and Duration: Pain began 5 years ago, following back surgery in 2019. - Location: Left foot, specifically the lateral midfoot. - Quality: Sharp, stabbing,, aching, sore. - Radiation: No radiation described. - Associated symptoms: The area of pain has reddish color changes in the lateral midfoot without erythema. - Alleviating factors: Resting, not being on her feet, and taking tramadol offer some help. - Exacerbating factors: Walking and climbing stairs. - Interventions: A [employer] spinal cord stimulator provides minimal relief, mainly as a distraction when turned up to a high setting. Pain Management - Affect: The patient reports feeling depressed, minimal emotions and has a history of depression for which multiple medications were not effective. - Analgesia: The patient currently takes tramadol for her pain. - She has a [employer] spinal cord stimulator which she reports is not very effective and helps mostly as a distraction. - Previous medications include oxycodone, which was stopped due to concern for cognitive side effects, and gabapentin, which was not helpful. - Adverse Effects: The spinal cord stimulator battery site is tender and causes irritation and pain, particularly when she leans back in a chair. - Activities of Daily Living: Her pain interferes with walking and climbing stairs. - She uses bilateral ankle braces for foot drop. - Aberrant Drug-Related Behaviors: No aberrant behaviors were discussed. 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 - Musculoskeletal: Reports bilateral foot drop and chronic pain in the left foot with history of tibia fracture due to fall. - She denies any current back pain, uses SCS daily. - Neurological: Reports peripheral neuropathy in both legs, forgetfulness, and memory changes. Sees Neurology. Const All systems reviewed & are unremarkable except as noted in HPI and below Physical Exam Vital Signs: Last Vital Signs Pulse 75 10/26/25 08:20 BP 159/75 H 10/26/25 08:22 Pulse Ox 98 10/26/25 08:20 Oxygen Delivery Method Room Air 10/26/25 08:20 BMI result Body Mass Index 24.4 General: Appears afebrile. Alert and oriented. Forgetful, slow to respond at times. Mood appropriate. Flat affect. Follows and participates in conversation appropriately. Respiratory effort is unlabored. No cough. Able to transition from sit to stand unassisted. Ambulates with bilaterally normal heel strike and toe off. General: Yes no CVA tenderness Back/Spine/Pelvis Other: - Back: Inspection reveals well healed incisions in the midline upper and lower lumbar areas and left mid lumbar paraspinal regions. The rechargeable IPG is located in the left mid-lumbar area. Palpation reveals tenderness over the IPG site. - Lower Extremities: Inspection reveals mild red discoloration of the left foot, most prominently at the lateral midfoot. Bilateral toe contractures are present, uses spacers between greater toe and 2nd toe on the left. AFO braces present. High steppage gait. - Neurologic: Motor strength is impaired with dorsiflexion of both feet, consistent with bilateral foot drop. Sensation to light touch on the left foot is present. +2 pedal pulses. Back: no CVA tenderness Cervical Spine: cervical ROM normal and No Cervical spine tenderness Thoracic/Lumbar Spine: thoracic and lumbar spine normal to inspection, Thoracic/lumbar spine scar(s), Lasegue's sign negative, straight leg raise negative bilaterally, thoraco-lumbar ROM limited, No thoracic spinal tenderness and No lumbar spinal tenderness Sacroiliac joints: bilaterally nontender Extrem General: Yes capillary refill normal, Yes no clubbing, cyanosis or edema, Yes no calf tenderness and Yes Limp noted Results Reviewed Results Reviewed: MR BRAIN WITHOUT CONTRAST 09/25/25 CLINICAL INFORMATION: R 68.89. COMPARISON: None available. TECHNIQUE: MRI of the brain was obtained using routine sequences without contrast. FINDINGS: Paramagnetic field distortion secondary to dental work. No restricted diffusion. No acute intracranial hemorrhage, mass effect, midline shift, hydrocephalus or herniation. Ordonez-white matter differentiation is normal. Prominence of the extra-axial CSF spaces and cerebral sulci involving the right and to a lesser extent left temporal lobes. Dilated right greater than left temporal horns of the lateral ventricles. Bilateral multifocal patchy and punctate subcortical and deep white matter hyperintense T2 FLAIR signal foci involving centrum semiovale and dumont radiata. Flow-void signal within the main cerebral vessels is normal. Posterior cranial fossa contents demonstrated no signal abnormality or mass effect. Sellar/suprasellar region is normal. Craniocervical junction is intact with normal position of the cerebellar tonsils. IMPRESSION: Bitemporal lobe atrophy, right greater than left. White matter T2 FLAIR signal. Differential diagnostic considerations include small vessel occlusive disease versus demyelinating process. No acute brain abnormality. Assessment & Plan Assessment & Plan (1) Lumbar post-laminectomy syndrome: Code(s): M96.1 - Postlaminectomy syndrome, not elsewhere classified Category: Medical (2) Chronic pain syndrome: Code(s): G89.4 - Chronic pain syndrome Category: Medical (3) Peripheral neuropathy: Code(s): G62.9 - Polyneuropathy, unspecified Category: Medical (4) Chronic low back pain: Code(s): M54.50 - Low back pain, unspecified; G89.29 - Other chronic pain Category: Medical (5) Chronic back pain: Code(s): M54.9 - Dorsalgia, unspecified; G89.29 - Other chronic pain Category: Medical (6) Presence of spinal cord stimulator: Code(s): Z96.82 - Presence of neurostimulator Category: Medical (7) Left foot pain: Code(s): M79.672 - Pain in left foot Category: Medical Plan To evaluate the patient's chronic left foot pain and unsatisfactory results from her [employer] spinal cord stimulator (SCS), an X-ray of the back will be obtained to check for lead migration and assess the level placement and integrity of the implantable pulse generator (IPG) site. Once the X-ray results are reviewed, a [employer] termite control service representative will be invited to interrogate the device and explore reprogramming to optimize pain coverage. The patient's desire for SCS explantation was discussed. It was explained that the ordered X-ray is crucial to determine if the device was placed by a Neurosurgeon or a spray i painter (patient believes by Neurosurgeon but she is not sure), as this will dictate who can perform the removal. The patient was instructed to turn off her SCS for one week to accurately assess its contribution to her pain management. Regarding her cognitive concerns, the patient was informed to follow up with her Neurology regarding brain MRI given findings of bitemporal atrophy and white matter changes, as she believes her cognitive issues might be result of the SCS or opioid medication. She was advised to continue discussing these neurological findings with her Neurologist and follow up with them as scheduled for further testing. All questions and concerns have been answered and patient agreed with the treatment plan. Follow up for xray results and sooner as needed. Patient was informed and verbally consented to the use of an ambient scribe for clinic note documentation during this visit. Orders: Orders XR lumbar spine 2-3V Today G89.29 - Other chronic pain, M54.9 - Dorsalgia, unspecified, Z96.82 - Presence of neurostimulator XR thoracic spine 3V Today G89.29 - Other chronic pain, M54.9 - Dorsalgia, unspecified, M79.672 - Pain in left foot, Z96.82 - Presence of neurostimulator Coding Level of Care Code New Pt Level 4 (57702) Diagnoses Lumbar post-laminectomy syndrome M96.1 Chronic pain syndrome G89.4 Peripheral neuropathy G62.9 Chronic low back pain M54.50; G89.29 Chronic back pain M54.9; G89.29 Presence of spinal cord stimulator Z96.82 Left foot pain M79.672
[2025-10-26 08:20] VITALS: BP 145/81; PULSE 75; O2SAT 98; BMI 24.4
[2025-10-26 08:22] VITALS: BP 159/75
[2025-10-26 09:09] VITALS: BP 128/70
== END 2025-10-26 09:10 | disposition home or self-care (01) ==
LOC: HO.PMC 08:11
PROVIDERS: PCP Physician Assistant; Referring Provider Psychiatry & Neurology Neurology; Visit Provider Nurse Practitioner Family
DX: M96.1 Postlaminectomy syndrome, not elsewhere classified (principal); G89.4 Chronic pain syndrome; G62.9 Polyneuropathy, unspecified; M54.50 Low back pain, unspecified; G89.29 Other chronic pain; M54.9 Dorsalgia, unspecified; Z96.82 Presence of neurostimulator; M79.672 Pain in left foot
CPT/HCPCS: 99204

== ENCOUNTER → 2025-10-26 09:23 | Outpatient (BNV) | payer OTHER, SELFPAY | PROVIDERS: PCP Physician Assistant; Referring Provider Psychiatry & Neurology Neurology; Visit Provider Radiology Diagnostic Radiology | DX: M41.84 Other forms of scoliosis, thoracic region (principal); M47.816 Spondylosis without myelopathy or radiculopathy, lumbar region | CPT/HCPCS: 72072; 72100 ==

== ENCOUNTER 2025-11-02 16:08 | Outpatient (AMB) | payer OTHER, SELFPAY ==
--- OUTSIDE RECORDS SUMMARY | 2024-06-30 04:30 | XMS_ITS ---
Author Organization [facility] Address [address] [place] [address] Care Team Providers Care Dairy Processing Equipment Operator Name Role Phone SUDHIR Samson Primary Care Provider [phone] REASON FOR VISIT 6 [facility] Social History Sex Assigned At : Social History Observation Description Sex Assigned At Female Encounters Encounter Location Date Provider Diagnosis [address] [address] 06/30/2024 SUDHIR Samson Plan Of Treatment No Information Progress Notes * ROGER Cristin IDOB:1959 (64 yo F)Acc No.[id number]:06/30/2024 Patient: Cristin Brambila I Provider: Donald Samson DDS :1960 A ge:63 Y S ex:Female Date:06/30/2024 Address:[address] [place] [address] [address] [facility] Subjective: * Chief Complaints: * 6 mrc Objective: Past Vitals:* 12/30/2023 Sterilx2: hd/fb, IDX2: hd/fb , Pulse:60/min, BP:154/71mm Hg, Pain scale:- * 06/24/2023 Sterilx2: gd/fb, IDX2: gd/fb , Pulse:61/min, BP:101/62mm Hg, Pain scale:- * 12/24/2022 Sterilx2:lt/fb, IDX2:lt/fb, Temp:98.4F, Pulse:57/min, BP:126/79mm Hg, Pain scale:01-10 * Electronic signature of CHINO Samson DDS, [id number] on 11/02/2025 at 07:37 PM EST Sign off status: Pending Visit Status: Saul Kendall (Patient Rescheduled) * Provider: Donald Samson DDS Date: 0 06/30/2024 Generated for Nancy olmedo/Namrata/eTransmitting on: 1 01/03/2025 07:37 PM EST
--- NOTE | 2025-11-02 16:15 | A.OFFVIS_ITS ---
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 The device was initially implanted by a neurosurgeon to alleviate chronic left foot pain. However, she reports that the stimulator has not provided any relief for her foot pain, and she denies experiencing any back pain. The patient states that the stimulator causes discomfort, particularly when she is lying on her back, due to the sensation of pressure from the battery and the leads of the device. She wishes to have the stimulator removed due to its ineffectiveness and the discomfort it causes. Denies any recent cough, cold, infection, fever or any significant changes in medical history since last office visit. She is concerned about ongoing memory issues and forgetfulness and awaits secondary Neurology evaluation. PRIOR: The patient is a 64-year-old female who presents for an initial evaluation for chronic left foot pain, though she was referred for chronic low back pain, which she denies having. Her symptoms began following a back surgery in January 2020 for a bulging disc, during which she had three discs (L3, L4, and L5) replaced and she underwent lumbar fusion. Post-surgically, she developed peripheral neuropathy in both legs and significant bilateral foot drop, for which she uses ankle braces. Approximately two weeks after her surgery, she tripped on a rug due to the foot drop and sustained a fracture of her left tibia, which was initially managed non- surgically. About a year later, due to worsening pain, an MRI revealed persistent damage, and she underwent a procedure to place a screw, which was later removed. This intervention did not resolve her pain, which has since grown progressively worse. She has a [employer] spinal cord stimulator (SCS), which was placed in 2022 to manage this foot pain, but she reports it provides little relief and is irritating at the battery site which is located in the left upper lumbar regions. She currently takes tramadol for pain, having switched from oxycodone due to concerns about cognitive side effects, and has previously failed a trial of gabapentin. Patient reports since their recent move to [place], she injured her right leg and foot and went to [facility] in [place], where x-rays were taken (reports are not available for review) and she was provided with script of meloxicam. She also reports pending evaluation by Podiatry. Separately, the patient reports a two-year history of memory issues, forgetfulness, and cognitive changes, for which she has been seeing a [facility] Neurologist. A brain MRI revealed bitemporal lobe atrophy, right greater than left, and white matter changes. She has a history of depression, for which multiple medications have been ineffective, and reports chronic daytime fatigue and a feeling of having no emotions but noted to smile occasionally during today's visit. However, she does have flat affect with slow responses and forgetfulness. Pain Description - Onset and Duration: Pain began 5 years ago, following back surgery in 2019. - Location: Left foot, specifically the lateral midfoot. - Quality: Sharp, stabbing,, aching, sore. - Radiation: No radiation described. - Associated symptoms: The area of pain has reddish color changes in the lateral midfoot without erythema. - Alleviating factors: Resting, not being on her feet, and taking tramadol offer some help. - Exacerbating factors: Walking and climbing stairs. - Interventions: A [employer] spinal cord stimulator provides minimal relief, mainly as a distraction when turned up to a high setting. Pain Management - Affect: The patient reports feeling depressed, minimal emotions and has a history of depression for which multiple medications were not effective. - Analgesia: The patient currently takes tramadol for her pain. - She has a [employer] spinal cord stimulator which she reports is not very effective and helps mostly as a distraction. - Previous medications include oxycodone, which was stopped due to concern for cognitive side effects, and gabapentin, which was not helpful. - Adverse Effects: The spinal cord stimulator battery site is tender and causes irritation and pain, particularly when she leans back in a chair. - Activities of Daily Living: Her pain interferes with walking and climbing stairs. - She uses bilateral ankle braces for foot drop. - Aberrant Drug-Related Behaviors: No aberrant behaviors were discussed. 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 - Neurological: Reports chronic left foot pain. - General: Reports irritation from the implanted spinal cord stimulator battery and leads when lying on her back. Physical Exam Exam Exam: Vital Signs: Last Vital Signs Pulse 67 11/02/25 16:21 BP 140/80 H 11/02/25 16:21 Pulse Ox 98 11/02/25 16:21 Oxygen Delivery Method Room Air 11/02/25 16:21 BMI result Body Mass Index 24.4 General: Appears afebrile. Alert and oriented. Forgetful, slow to respond at times. Mood appropriate. Flat affect. Follows and participates in conversation appropriately. Respiratory effort is unlabored. No cough. Able to transition from sit to stand unassisted. Ambulates with bilaterally normal heel strike and toe off. General: Yes no CVA tenderness Back/Spine/Pelvis Other: - Back: Inspection reveals well healed incisions in the midline upper and lower lumbar areas and left mid lumbar paraspinal regions. The rechargeable IPG is located in the left mid-lumbar area. Palpation reveals tenderness over the IPG site. - Lower Extremities: Inspection reveals mild red discoloration of the left foot, most prominently at the lateral midfoot. Bilateral toe contractures are present, uses spacers between greater toe and 2nd toe on the left. AFO braces present. High steppage gait. - Neurologic: Motor strength is impaired with dorsiflexion of both feet, c onsistent with bilateral foot drop. Sensation to light touch on the left foot is present. +2 pedal pulses. Back: no CVA tenderness Cervical Spine: cervical ROM normal and No Cervical spine tenderness Thoracic/Lumbar Spine: thoracic and lumbar spine normal to inspection, Thoracic/lumbar spine scar(s), Lasegue's sign negative, straight leg raise negative bilaterally, thoraco-lumbar ROM limited, No thoracic spinal tenderness and No lumbar spinal tenderness Sacroiliac joints: bilaterally nontender Extrem General: Yes capillary refill normal, Yes no clubbing, cyanosis or edema, Yes no calf tenderness and Yes Limp noted Results Reviewed Results Reviewed: XR THORACIC SPINE 10/26/25 CLINICAL INFORMATION: V36.82 . Presence of neurostimulator COMPARISON: None available. TECHNIQUE: AP and lateral views. FINDINGS: The intraspinal canal stimulator electrode leads ending at T7 level and entering right midline dorsal lateral approach T9-10 level. Metallic reservoir overlapping the left upper quadrant abdomen. There is a levoconvex curvature of the upper thoracic spine and a mild dextroconvex curvature lower thoracic spine. No lytic or blastic lesions. Endplate sclerosis and decreased intervertebral disc height and the mid thoracic spine. No acute fracture or gross listhesis. IMPRESSION: There are stimulator electrode leads entering in at T9-10 level and ending at T7. Levoconvex scoliosis, upper thoracic spine. XR LUMBOSACRAL SPINE 10/26/25 CLINICAL INFORMATION: M54.9 - Dorsalgia, unspecified COMPARISON: None available. TECHNIQUE: AP and lateral views. FINDINGS: Endplate sclerosis marginal osteophyte formation and decreased intervertebral disc height and vacuum phenomenon at L2-3. Intervertebral disc spacer placement at L3-4, L4-5 and L5-S1 levels. There is a anterior right lateral approach plates at L4-5. Likely laminectomies L3-4, L4-5 levels. Metallic reservoir in the left posterior lumbar region. S-shaped curvature of the thoracolumbar spine. No acute cortical disruption or gross malalignment. IMPRESSION: Spondylosis, L2-3. Status post surgical changes/arthrodesis from L3-4 to L5-S1. Assessment & Plan Assessment & Plan (1) Lumbar post-laminectomy syndrome: Code(s): M96.1 - Postlaminectomy syndrome, not elsewhere classified Category: Medical (2) Presence of spinal cord stimulator: Code(s): Z96.82 - Presence of neurostimulator Category: Medical (3) Left foot pain: Code(s): M79.672 - Pain in left foot Category: Medical (4) Chronic low back pain: Code(s): M54.50 - Low back pain, unspecified; G89.29 - Other chronic pain Category: Medical Plan Thoracic and lumbar xray results were reviewed with patient and her . Current lead placement shows SCS placement was most likely intended for back and leg pain and does not provide pain coverage in distal regions, like left foot pain. We discussed additional lead placement or new SCS system to achieve optimal paresthesia for persistent left foot pain, patient declined and adamant to remove SCS system. I will place a referral to Neurosurgery for evaluation and removal of the spinal cord stimulator as it is surgically placed. Following the removal, the patient will have a follow-up appointment in our clinic to reassess the necessity of alternative interventions, such as peripheral nerve stimulation if foot pain persists. All questions and concerns have been answered and patient agreed with the treatment plan. Follow up as needed. Patient was informed and verbally consented to the use of an ambient scribe for clinic note documentation during this visit. Orders: Referrals Neuro Spine Referral M79.672 - Pain in left foot, M96.1 - Postlaminectomy syndrome, not elsewhere classified, Z96.82 - Presence of neurostimulator Coding Level of Care Code Est Pt Level 4 (04340) Diagnoses Lumbar post-laminectomy syndrome M96.1 Presence of spinal cord stimulator Z96.82 Left foot pain M79.672 Chronic low back pain M54.50; G89.29
[2025-11-02 16:21] VITALS: BP 140/80; PULSE 67; O2SAT 98; BMI 24.4
--- OUTSIDE RECORDS SUMMARY | 2025-11-02 19:37 | XMS_ITS | Data Portability ---
Author Organization ID - [employer], [facility] Office Address [address] [place] [address] Assessment No assessment recorded. Plan of Treatment Reminders Order Date Submit Date Provider Last Modified By Organization Details Last Modified Time Details Appointments None recorde d. Lab drug screen, urine 019 10/18/20 19 [email or web address] [facility], [address] [place] [address], [phone], 9 11:36:37 drug screen, urine 019 12/17/19 19 [email or web address] [facility], [address] [place] [address], [phone], 9 09:51:31 Referral None recorde d. Procedures [...] ICD10 Code Diagnosis IMO Codes Diagnosis Note [id number] Magdalena Serna DO [facility] Office* [address] [place] [address] 12/17/2018 09:28:23 12/17/2018 10:02:14 Screening for disorder [id number] Z13.9 [id number] Ray Jeronimo DO [facility] _[facility] Office* [address] [place] [address] 10/18/2019 11:14:18 10/18/2019 11:39:59 Screening for disorder [id number] Z13.9 Health Concerns Section Related Observation LastModified by Organization Detai ls LastModified Time None Recorded Concern Status LastModified by Organization Details LastModified Time None Recorded Advance Directives Directive None Recorded Payers Insurance Date Sequence Insurance Name Policy Number Policy Beatty Covered Member ID Beatty Member ID Guarantor Name 12/17/2018 1 *SELF PAY* Co tara Lilly 12/23/2018 [employer] (PT[facility]) Cristin Lilly [id number] Cristin Lilly OBGyn Episode No OBEpisode recorded.
== END 2025-11-02 16:44 | disposition home or self-care (01) ==
LOC: HO.PMC 16:09
PROVIDERS: PCP Physician Assistant; Visit Provider Nurse Practitioner Family
DX: M96.1 Postlaminectomy syndrome, not elsewhere classified (principal); Z96.82 Presence of neurostimulator; M79.672 Pain in left foot; M54.50 Low back pain, unspecified; G89.29 Other chronic pain
CPT/HCPCS: 99214